=== PATIENT | male | born 2000 | race Caucasian/White ===

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

== ENCOUNTER 2019-03-07 08:51 | Emergency (ER) | payer MEDICAID ==
[~2019-03-07] VITALS: Ht 188 cm; Wt 80.3 kg
[2019-03-07 08:56] VITALS: Ht 188 cm; Wt 80.3 kg
[2019-03-07 11:00] VITALS: BP 127/66
== END 2019-03-07 11:06 | disposition home or self-care (01) ==
LOC: ED 08:51
DX: J02.9 Acute pharyngitis, unspecified (principal); S99.911A Unspecified injury of right ankle, initial encounter; K21.9 Gastro-esophageal reflux disease without esophagitis; X58.XXXA Exposure to other specified factors, initial encounter; Y93.89 Activity, other specified; Y92.89 Other specified places as the place of occurrence of the external cause; Y99.8 Other external cause status